=== PATIENT | female | born 1945 | race Caucasian/White ===

== ENCOUNTER 2024-05-01 16:53 | Inpatient (IN) | payer MEDICARE ==
[~2024-05-01] VITALS: Ht 165.1 cm; Wt 55.8 kg
[2024-05-01] MEDS ORDERED: MODA100T29 PO (17:10)
[2024-05-01] MEDS ORDERED: nature-throid PO (17:10)
[2024-05-01] MEDS ORDERED: IMIP10TA PO (17:10)
[2024-05-01] MEDS ORDERED: PANT20TA2 PO (17:10)
[2024-05-01 21:30] VITALS: BP 160/80; TEMP 98; O2SAT 100
[2024-05-01] MEDS ORDERED: MAGNESIUM HYDROXIDE 30 ML LIQUID UDC PO PRN (21:30)
[2024-05-01] MEDS: BLOOD SUGAR DIAGNOSTIC 1 EACH STRIP VI ONE (21:30)
[2024-05-01] MEDS ORDERED: LORAZEPAM 0.5 MG TABLET PO PRN ×2 (21:30)
[2024-05-01 22:00] VITALS: BP 133/77; O2SAT 100
[2024-05-02 08:08] LABS: CALCIUM 8.6 mg/dL (8.5-10.1); CARBON DIOXIDE 24 mmol/L (21-32); CHLORIDE 109 mmol/L (98-107); CHOLESTEROL 143 mg/dL (<200); CREATININE 0.9 mg/dL (0.6-1.3); GLUCOSE 108 mg/dL (74-106); GLUCOSE FASTING 108 mg/dL (70-115); HDL CHOLESTEROL 65 mg/dL (40-60); POTASSIUM 2.9 mmol/L (3.5-5.1); SODIUM SERUM 142 mmol/L (136-145); TRIGLYCERIDES 47 MG/DL (30-150); UREA NITROGEN, BLOOD 17 mg/dL (7-18)
[2024-05-02] MEDS ORDERED: TEMAZEPAM 7.5 MG CAPSULE PO PRN (08:30)
[2024-05-02 08:36] VITALS: BP 128/68; TEMP 98; O2SAT 99
[2024-05-02] MEDS ORDERED: LORAZEPAM 0.5 MG TABLET PO PRN ×2 (08:45→09:00)
[2024-05-02] MEDS: POTASSIUM CHLORIDE 10 MEQ TAB.PRT.SR PO SCH (10:13)
[2024-05-02] MEDS: MAG HYDROX/AL HYDROX/SIMETH 30 ML LIQUID UDC PO PRN (12:22)
[2024-05-02] MEDS ORDERED: BENZONATATE 100 MG CAPSULE PO PRN (13:00)
[2024-05-02] MEDS: NITROFURANTOIN/NITROFURAN MAC 100 MG CAPSULE PO SCH (14:00)
[2024-05-02] MEDS: ENSURE ENLIVE (VAN) 240 ML LIQUID PO SCH (17:00)
[2024-05-02 20:00] VITALS: BP 100/81; TEMP 98.4; O2SAT 100
[2024-05-02] MEDS: IMIPRAMINE HCL 25 MG TABLET PO SCH (20:32)
[2024-05-02] MEDS ORDERED: IMIPRAMINE HCL 10 MG TABLET PO SCH (21:00)
[2024-05-03] MEDS: THYROID 60 MG TABLET PO SCH (06:00)
[2024-05-03 07:17] LABS: BASOPHILS # (AUTO) 0.1 K/UL (0.0-0.2); BASOPHILS % (AUTO) 1.4 % (0.0-2.0); EOSINOPHILS # (AUTO) 0.3 K/uL (0.0-0.7); EOSINOPHILS % (AUTO) 5.7 % (0.0-7.0); HEMATOCRIT 29.6 % (31.2-41.9); HEMOGLOBIN 9.8 g/dL (10.9-14.3); LYMPHOCYTES # (AUTO) 1.9 K/uL (0.8-4.8); LYMPHOCYTES % (AUTO) 30.3 % (20.5-51.5); MEAN CORPUSCULAR HEMOGLOBIN 24.4 uug (24.7-32.8); MEAN CORPUSCULAR HGB CONC 33 g/dL (32.3-35.6); MEAN CORPUSCULAR VOLUME 73.9 fL (75.5-95.3); MONOCYTES # (AUTO) 0.8 K/uL (0.1-1.30); MONOCYTES % (AUTO) 13.3 % (0.0-11.0); NEUTROPHILS % (AUTO) 49.3 % (38.5-71.5); PLATELET COUNT (AUTO) 418 K/uL (179-408); RED BLOOD CELL COUNT(AUTO) 4.01 MIL/uL (3.63-4.92); RED CELL DISTRIBUTION WIDTH 17.9 % (12.3-17.7); WHITE BLOOD COUNT (AUTO) 6.1 K/uL (3.8-11.8)
[2024-05-03 07:23] LABS: DIFFERENTIAL COMMENT 1
[2024-05-03 08:22] VITALS: BP 102/42; TEMP 98.2; O2SAT 98
[2024-05-03 09:59] LABS: NEUTROPHILS % (MANUAL) 50 % (42-75)
[2024-05-03 10:00] LABS: ANISOCYTOSIS 1+; EOSINOPHILS % (MANUAL) 6 % (0-8); HYPOCHROMASIA 1+; LYMPHOCYTES % (MANUAL) 31 % (20-40); MONOCYTES % (MANUAL) 13 % (2-10); PLATELET ESTIMATE INCREASED
[2024-05-03 13:18] VITALS: BP 123/58; TEMP 98.2; O2SAT 96
[2024-05-03 14:27] LABS: CARBON DIOXIDE 24 mmol/L (21-32); CHLORIDE 110 mmol/L (98-107); CREATININE 0.8 mg/dL (0.6-1.3); GLUCOSE 103 mg/dL (74-106); POTASSIUM 3.8 mmol/L (3.5-5.1); SODIUM SERUM 145 mmol/L (136-145); UREA NITROGEN, BLOOD 21 mg/dL (7-18)
[2024-05-03 17:16] VITALS: BP 99/46; TEMP 98.1; O2SAT 97
[2024-05-03 19:48] VITALS: BP 106/53; TEMP 98.1; O2SAT 100
[2024-05-03] MEDS: IMIPRAMINE HCL 25 MG TABLET PO SCH (20:45)
[2024-05-04 08:03] VITALS: BP 118/46; TEMP 97.9; O2SAT 99
[2024-05-04 10:02] LABS: IRON, SERUM 16 ug/dL (50-175)
[2024-05-04 14:27] LABS: THYROID STIMULATING HORMONE 2.337 mIU/mL (0.358-3.740)
[2024-05-04] MEDS: risperiDONE 0.25 MG TABLET PO SCH (16:24)
[2024-05-04 16:58] VITALS: BP 116/66; TEMP 98.1; O2SAT 96
[2024-05-04 20:00] VITALS: BP 134/61; TEMP 97.5; O2SAT 100
[2024-05-05] MEDS: IBUPROFEN 400 MG TABLET PO PRN (11:24)
[2024-05-05 19:58] VITALS: BP 124/60; TEMP 98.1; O2SAT 95
[2024-05-06 08:00] VITALS: BP 157/89; TEMP 97.6; O2SAT 97
[2024-05-06 16:00] VITALS: BP 101/93; TEMP 97.2; O2SAT 97
[2024-05-06 19:35] LABS: BASOPHILS # (AUTO) 0.1 K/UL (0.0-0.2); EOSINOPHILS # (AUTO) 0.3 K/uL (0.0-0.7); HEMATOCRIT 29.6 % (31.2-41.9); HEMOGLOBIN 9.6 g/dL (10.9-14.3); LYMPHOCYTES # (AUTO) 1.9 K/uL (0.8-4.8); LYMPHOCYTES % (AUTO) 19.6 % (20.5-51.5); MEAN CORPUSCULAR HEMOGLOBIN 23.6 uug (24.7-32.8); MEAN CORPUSCULAR HGB CONC 32 g/dL (32.3-35.6); MEAN CORPUSCULAR VOLUME 73.2 fL (75.5-95.3); MONOCYTES % (AUTO) 10.4 % (0.0-11.0); NEUTROPHILS # (AUTO) 6.5 K/uL (1.8-8.9); PLATELET COUNT (AUTO) 537 K/uL (179-408); RED BLOOD CELL COUNT(AUTO) 4.04 MIL/uL (3.63-4.92); RED CELL DISTRIBUTION WIDTH 18.7 % (12.3-17.7); WHITE BLOOD COUNT (AUTO) 9.8 K/uL (3.8-11.8)
[2024-05-06 19:44] LABS: CALCIUM 9.2 mg/dL (8.5-10.1); CARBON DIOXIDE 25 mmol/L (21-32); CHLORIDE 106 mmol/L (98-107); CREATININE 0.9 mg/dL (0.6-1.3); GLUCOSE 110 mg/dL (74-106); POTASSIUM 4.4 mmol/L (3.5-5.1); SODIUM SERUM 141 mmol/L (136-145); UREA NITROGEN, BLOOD 29 mg/dL (7-18)
[2024-05-06 19:54] LABS: ALANINE AMINOTRANSFERASE 50 U/L (14-59); ALKALINE PHOSPHATASE 71 U/L (50-136); ASPARTATE AMINOTRANSFERASE 18 U/L (15-37); BILIRUBIN,TOTAL 0.3 mg/dL (0.2-1.0); TOTAL PROTEIN, SERUM 6.1 g/dL (6.4-8.2)
[2024-05-07] MEDS ORDERED: THYR30TA2 PO (10:09)
[2024-05-07] MEDS ORDERED: THYR15TA PO (10:09)
== END 2024-05-06 20:43 | disposition short-term general hospital (02) | DRG 885 ==
LOC: ER 16:53 → GPS 21:09
PROVIDERS: ADMIT Psychiatry & Neurology Psychosomatic Medicine
DX: F29 Unspecified psychosis not due to a substance or known physiological condition (principal); N18.4 Chronic kidney disease, stage 4 (severe); G92.9 Unspecified toxic encephalopathy; R45.851 Suicidal ideations; N39.0 Urinary tract infection, site not specified; N13.30 Unspecified hydronephrosis; F33.3 Major depressive disorder, recurrent, severe with psychotic symptoms; G47.419 Narcolepsy without cataplexy; B96.89 Other specified bacterial agents as the cause of diseases classified elsewhere; E03.9 Hypothyroidism, unspecified; M79.7 Fibromyalgia; D50.9 Iron deficiency anemia, unspecified; Z88.6 Allergy status to analgesic agent; Z88.8 Allergy status to other drugs, medicaments and biological substances; Z91.018 Allergy to other foods; R32 Unspecified urinary incontinence; M47.816 Spondylosis without myelopathy or radiculopathy, lumbar region; R20.2 Paresthesia of skin; T14.90XS Injury, unspecified, sequela; X58.XXXS Exposure to other specified factors, sequela; E87.6 Hypokalemia; D25.9 Leiomyoma of uterus, unspecified; Z85.118 Personal history of other malignant neoplasm of bronchus and lung; Z88.1 Allergy status to other antibiotic agents; F39 Unspecified mood [affective] disorder; G62.9 Polyneuropathy, unspecified; G47.00 Insomnia, unspecified
CPT/HCPCS: 36415; 70030-TC; 70450; 71045; 72131; 83550; 83921; 84443; 85025; 93005; A4606; A4663; J8499

== ENCOUNTER 2024-05-06 21:30 | Inpatient (IN) | payer MEDICARE ==
[~2024-05-06] VITALS: Ht 165.1 cm; Wt 55.3 kg
[~2024-05-06 21:30] MED LIST: PANT20TA2 PO; nature-throid PO
[2024-05-06] MEDS ORDERED: MAGNESIUM HYDROXIDE 30 ML LIQUID UDC PO PRN (22:00)
[2024-05-06] MEDS ORDERED: ONDANSETRON 4 MG/2 ML VIAL IV PRN (22:00)
[2024-05-06] MEDS ORDERED: ACETAMINOPHEN 325 MG TABLET PO PRN (22:00)
[2024-05-06 22:50] VITALS: BP 123/58; TEMP 97.6
[2024-05-06] MEDS ORDERED: IOHEXOL 300MG/ML 100 ML INFUS..BTL ONE (23:06)
[2024-05-06] MEDS ORDERED: IV NORMAL SALINE 250 ML IV ONE (23:06)
[2024-05-06] MEDS ORDERED: SWABABLE VALVE TRANSFER SET EA MC ONE (23:06)
[2024-05-07 00:10] VITALS: BP 110/60; TEMP 97.7
[2024-05-07] MEDS: IBUPROFEN 400 MG TABLET PO PRN (00:56)
[2024-05-07] MEDS: IV NS 1000 ML 1,000 ML IV SCH (01:12)
[2024-05-07] MEDS: IV NORMAL SALINE 500 ML BAG IV ONE (01:13)
[2024-05-07 04:30] VITALS: BP 122/60; TEMP 97.7; O2SAT 100
[2024-05-07 06:29] VITALS: BP 123/58; TEMP 97.6; O2SAT 100
[2024-05-07 06:54] LABS: BASOPHILS # (AUTO) 0.1 K/UL (0.0-0.2); BASOPHILS % (AUTO) 1.1 % (0.0-2.0); EOSINOPHILS # (AUTO) 0.4 K/uL (0.0-0.7); EOSINOPHILS % (AUTO) 3.6 % (0.0-7.0); HEMATOCRIT 29.7 % (31.2-41.9); HEMOGLOBIN 9.8 g/dL (10.9-14.3); LYMPHOCYTES # (AUTO) 2.5 K/uL (0.8-4.8); LYMPHOCYTES % (AUTO) 25.3 % (20.5-51.5); MEAN CORPUSCULAR HEMOGLOBIN 24.3 uug (24.7-32.8); MEAN CORPUSCULAR HGB CONC 33 g/dL (32.3-35.6); MEAN CORPUSCULAR VOLUME 73.9 fL (75.5-95.3); MONOCYTES # (AUTO) 0.9 K/uL (0.1-1.30); MONOCYTES % (AUTO) 8.6 % (0.0-11.0); NEUTROPHILS # (AUTO) 6.1 K/uL (1.8-8.9); NEUTROPHILS % (AUTO) 61.4 % (38.5-71.5); PLATELET COUNT (AUTO) 538 K/uL (179-408); RED BLOOD CELL COUNT(AUTO) 4.02 MIL/uL (3.63-4.92); RED CELL DISTRIBUTION WIDTH 18.7 % (12.3-17.7)
[2024-05-07] MEDS: PANTOPRAZOLE SODIUM 40 MG TABLET.DR PO SCH (07:00)
[2024-05-07 07:36] LABS: CALCIUM 9.3 mg/dL (8.5-10.1); CARBON DIOXIDE 21 mmol/L (21-32); CHLORIDE 105 mmol/L (98-107); CREATININE 0.9 mg/dL (0.6-1.3); GLUCOSE 96 mg/dL (74-106); MAGNESIUM 2.6 mg/dL (1.8-2.4); PHOSPHOROUS 4.5 mg/dL (2.5-4.9); POTASSIUM 3.9 mmol/L (3.5-5.1); SODIUM SERUM 138 mmol/L (136-145); UREA NITROGEN, BLOOD 31 mg/dL (7-18)
[2024-05-07 07:49] LABS: DIFFERENTIAL COMMENT 1
[2024-05-07] MEDS ORDERED: NATURE THROID 65 MG PO SCH (09:00)
[2024-05-07] MEDS ORDERED: THYR30TA2 PO (10:09)
[2024-05-07] MEDS ORDERED: THYR15TA PO (10:09)
[2024-05-07 11:31] VITALS: BP 115/73; TEMP 98.2; O2SAT 98
[2024-05-07] MEDS: THYROID 60 MG TABLET PO SCH (12:21)
[2024-05-07 12:22] LABS: BASOPHILS % (MANUAL) 1 % (0-2); EOSINOPHILS % (MANUAL) 4 % (0-8); LYMPHOCYTES % (MANUAL) 25 % (20-40); MONOCYTES % (MANUAL) 9 % (2-10); NEUTROPHILS % (MANUAL) 61 % (42-75)
[2024-05-07 12:23] LABS: PLATELET ESTIMATE INCREASED
[2024-05-07 13:12] LABS: THYROID STIMULATING HORMONE 1.831 mIU/mL (0.358-3.740)
[2024-05-07 15:38] VITALS: BP 148/70; TEMP 98.2; O2SAT 95
[2024-05-07 19:00] VITALS: BP 97/57; TEMP 97.7; O2SAT 95
[2024-05-07] MEDS: IMIPRAMINE HCL 25 MG TABLET PO SCH (20:00)
[2024-05-07] MEDS ORDERED: IMIPRAMINE HCL 10 MG TABLET PO SCH (21:00)
[2024-05-08 06:00] VITALS: BP 132/61; TEMP 98.2; O2SAT 97
[2024-05-08 07:01] LABS: BASOPHILS # (AUTO) 0.1 K/UL (0.0-0.2); BASOPHILS % (AUTO) 1.3 % (0.0-2.0); EOSINOPHILS # (AUTO) 0.3 K/uL (0.0-0.7); EOSINOPHILS % (AUTO) 3.6 % (0.0-7.0); HEMATOCRIT 27.9 % (31.2-41.9); HEMOGLOBIN 9.4 g/dL (10.9-14.3); LYMPHOCYTES # (AUTO) 1.8 K/uL (0.8-4.8); LYMPHOCYTES % (AUTO) 20.6 % (20.5-51.5); MEAN CORPUSCULAR HEMOGLOBIN 24.6 uug (24.7-32.8); MEAN CORPUSCULAR HGB CONC 34 g/dL (32.3-35.6); MEAN CORPUSCULAR VOLUME 73.2 fL (75.5-95.3); MONOCYTES # (AUTO) 0.9 K/uL (0.1-1.30); MONOCYTES % (AUTO) 10.4 % (0.0-11.0); NEUTROPHILS # (AUTO) 5.6 K/uL (1.8-8.9); NEUTROPHILS % (AUTO) 64.1 % (38.5-71.5); PLATELET COUNT (AUTO) 546 K/uL (179-408); RED BLOOD CELL COUNT(AUTO) 3.82 MIL/uL (3.63-4.92); RED CELL DISTRIBUTION WIDTH 18.7 % (12.3-17.7); WHITE BLOOD COUNT (AUTO) 8.8 K/uL (3.8-11.8)
[2024-05-08 07:40] LABS: DIFFERENTIAL COMMENT 1
[2024-05-08 07:46] LABS: ALANINE AMINOTRANSFERASE 36 U/L (14-59); ALBUMIN 3.1 g/dL (3.4-5.0); ALKALINE PHOSPHATASE 68 U/L (50-136); ASPARTATE AMINOTRANSFERASE 19 U/L (15-37); BILIRUBIN,TOTAL 0.4 mg/dL (0.2-1.0); CALCIUM 9.2 mg/dL (8.5-10.1); CARBON DIOXIDE 21 mmol/L (21-32); CHLORIDE 107 mmol/L (98-107); CREATININE 0.7 mg/dL (0.6-1.3); GLUCOSE 110 mg/dL (74-106); MAGNESIUM 2.8 mg/dL (1.8-2.4); PHOSPHOROUS 4.4 mg/dL (2.5-4.9); POTASSIUM 4.7 mmol/L (3.5-5.1); SODIUM SERUM 138 mmol/L (136-145); TOTAL PROTEIN, SERUM 6.1 g/dL (6.4-8.2); UREA NITROGEN, BLOOD 23 mg/dL (7-18)
[2024-05-08] MEDS: CIPROFLOXACIN HCL 250 MG TABLET PO SCH (10:24)
[2024-05-08 11:02] VITALS: BP 120/48; TEMP 98.4; O2SAT 96
[2024-05-08 11:06] VITALS: BP 120/48; TEMP 98.4; O2SAT 96
[2024-05-08 15:07] VITALS: BP 126/45; TEMP 97.6; O2SAT 94
[2024-05-08 19:35] VITALS: BP 119/58; TEMP 98.3; O2SAT 96
[2024-05-09 06:21] VITALS: BP 124/46; TEMP 97.6; O2SAT 99
[2024-05-09 07:25] LABS: *BILIRUBIN,URIN NEGATIVE (NEGATIVE); *BLOOD, URINE NEGATIVE (NEGATIVE); *CLARITY,URINE CLEAR (CLEAR); *COLOR,URINE YELLOW (YELLOW); *KETONES,URINE NEGATIVE (NEGATIVE); *PROTEIN,URINE NEGATIVE (NEGATIVE); *UROBILINOGEN,URINE 0.2 E.U./dl (NORMAL); LEUKOCYTE ESTERASE ,URINE NEGATIVE (NEGATIVE); NITRITE, URINE NEGATIVE (NEGATIVE); UGLUCOSE NEGATIVE (NEGATIVE)
[2024-05-09] MEDS: CYANOCOBALAMIN 1000 MCG/ML VIAL IM SCH (08:16)
[2024-05-09] MEDS: FERROUS SULFATE 325 MG TABEC PO SCH (08:16)
[2024-05-09 11:20] VITALS: BP 127/48; TEMP 98.2; O2SAT 100
[2024-05-09 15:36] VITALS: BP 95/45; TEMP 98.3; O2SAT 99
[2024-05-09 19:35] VITALS: BP 125/52; TEMP 98.1; O2SAT 99
[2024-05-10 06:14] VITALS: BP 103/42; TEMP 97.4; O2SAT 98
[2024-05-10] MEDS: ENSURE ENLIVE (VAN) 240 ML LIQUID PO SCH (08:08)
[2024-05-10] MEDS: IBUPROFEN 400 MG TABLET PO PRN (08:43)
[2024-05-10 11:25] VITALS: BP 114/53; TEMP 97.4; O2SAT 99
[2024-05-10] MEDS ORDERED: MULT-1045 PO (14:06)
[2024-05-10] MEDS ORDERED: CRAN450T9 PO (14:06)
[2024-05-10] MEDS ORDERED: FERR325T28 PO (14:06)
[2024-05-10] MEDS ORDERED: IMIP25TA6 PO (14:06)
[2024-05-10] MEDS ORDERED: PANT40TA49 PO (14:06)
[2024-05-10] MEDS ORDERED: Lactose-Free Food PO (14:06)
[2024-05-10] MEDS ORDERED: MAGN400O6 PO (14:06)
[2024-05-10] MEDS ORDERED: THYR60TA2 PO (14:06)
[2024-05-10] MEDS ORDERED: DOCU-141 PO (14:06)
[2024-05-10] MEDS ORDERED: CELE100C PO (14:08)
== END 2024-05-10 16:05 | DRG 689 ==
LOC: MEDSURG3 21:30
PROVIDERS: ATTEND Internal Medicine
DX: N13.6 Pyonephrosis (principal); G92.9 Unspecified toxic encephalopathy; Q62.11 Congenital occlusion of ureteropelvic junction; Q62.0 Congenital hydronephrosis; Q62.10 Congenital occlusion of ureter, unspecified; E03.9 Hypothyroidism, unspecified; E83.41 Hypermagnesemia; B96.89 Other specified bacterial agents as the cause of diseases classified elsewhere; R26.81 Unsteadiness on feet; Z91.81 History of falling; D50.9 Iron deficiency anemia, unspecified; D75.839 Thrombocytosis, unspecified; D25.9 Leiomyoma of uterus, unspecified; E86.0 Dehydration; E88.09 Other disorders of plasma-protein metabolism, not elsewhere classified; G47.419 Narcolepsy without cataplexy; Z85.3 Personal history of malignant neoplasm of breast; Z87.891 Personal history of nicotine dependence; Z87.440 Personal history of urinary (tract) infections; Z88.6 Allergy status to analgesic agent; Z88.1 Allergy status to other antibiotic agents; M79.7 Fibromyalgia; F32.9 Major depressive disorder, single episode, unspecified; F41.9 Anxiety disorder, unspecified; Z87.828 Personal history of other (healed) physical injury and trauma; R20.2 Paresthesia of skin; M43.16 Spondylolisthesis, lumbar region; G47.00 Insomnia, unspecified; M47.816 Spondylosis without myelopathy or radiculopathy, lumbar region; N18.9 Chronic kidney disease, unspecified; R79.89 Other specified abnormal findings of blood chemistry; E87.6 Hypokalemia; R19.5 Other fecal abnormalities; M51.369 Other intervertebral disc degeneration, lumbar region without mention of lumbar back pain or lower extremity pain; G31.84 Mild cognitive impairment of uncertain or unknown etiology
CPT/HCPCS: 36415; 70030-TC; 76775; 82378; 83735; 83921; 84100; 84443; 85025; A4663; C1758; G0378; J3420; J7040; Q9967